=== PATIENT | male | born 1965 ===

== ENCOUNTER 2022-05-08 09:53 | Emergency (ER) | payer SELFPAY ==
--- NOTE | 2022-05-08 12:07 | Emergency Department Report ---
ED General Adult HPI - General Stated complaint: HX OF STROKE NO MEDS Time Seen by Provider: 05/08/22 12:02 - History of Present Illness Initial comments: 49-year-old male who was just relocated from [place] with a history of seizure disorder. Previous stroke history hypertension presents emerged department with symptoms secondary to seizure medication as he was out and needs to resume. Reports no chest pain, palpitations, nausea, vomiting -: Gradual Radiation: non-radiation Quality: dull Consistency: constant Improves with: none Worsens with: none Associated Symptoms: denies other symptoms Treatments Prior to Arrival: none ED Review of Systems ROS: Stated complaint: HX OF STROKE NO MEDS Other details as noted in HPI Comment: All other systems reviewed and negative ED Physical Exam - General General appearance: alert, in no apparent distress - Head Head exam: Present: atraumatic, normocephalic - Eye Eye exam: Present: normal appearance - ENT ENT exam: Present: mucous membranes moist - Neck Neck exam: Present: normal inspection - Respiratory Respiratory exam: Present: normal lung sounds bilaterally. Absent: respiratory distress - Cardiovascular Cardiovascular Exam: Present: regular rate, normal rhythm. Absent: systolic murmur, diastolic murmur, rubs, gallop - GI/Abdominal GI/Abdominal exam: Present: soft, normal bowel sounds - Rectal Rectal exam: Present: deferred - Extremities Exam Extremities exam: Present: normal inspection - Back Exam Back exam: Present: normal inspection - Neurological Exam Neurological exam: Present: alert, oriented X3 - Psychiatric Psychiatric exam: Present: normal affect, normal mood - Skin Skin exam: Present: warm, dry, intact, normal color. Absent: rash ED Medical Decision Making - Medical Decision Making Patient significant other does not know the name of the medication that this will be taken for the seizure labs advised him to contact the pharmacy all the previous primary care provider to get a list of the medications and follow-up with walk-in clinic for the medication refills Critical care attestation.: If time is entered above; I have spent that time in minutes in the direct care of this critically ill patient, excluding procedure time. ED Disposition Clinical Impression: Encounter for medication refill Disposition: HOME / SELF CARE / HOMELESS Is pt being admited?: No Does the pt Need Aspirin: No Condition: Stable Instructions: Medicine Refill at the Emergency Department Referrals: ADELITA DAVIS, [LAB/CONTRACT] - 3-5 Days [facility] [Outside] - 3-5 Days
== END 2022-05-09 12:42 | disposition home or self-care (01) ==
LOC: ED 09:53
DX: G40.909 Epilepsy, unspecified, not intractable, without status epilepticus (principal); Z76.0 Encounter for issue of repeat prescription; Z86.73 Personal history of transient ischemic attack (TIA), and cerebral infarction without residual deficits
CPT/HCPCS: 99282